=== PATIENT | female | born 1980 | race Caucasian/White ===

== ENCOUNTER 2017-09-09 17:48 | Inpatient (IN) | payer BC ==
[~2017-09-09] VITALS: Ht 162.6 cm; Wt 96.1 kg
[2017-09-09 17:59] VITALS: BP 117/66
[2017-09-09] MEDS ORDERED: PRENATAL TABLE1 EAC3 PO (18:19)
[2017-09-09] MEDS ORDERED: OMEPRAZOLE40 M1 PO (18:19)
[2017-09-09 19:08] VITALS: BP 118/70
[2017-09-09 21:21] LABS: BASOPHIL (%) 0.2 % (0-1); EOSINOPHIL (%) 0.7 % (0-5); EOSINOPHIL COUNT 0.1 K/uL (0-0.3); HEMATOCRIT 34.7 % (36.0-46.0); HEMOGLOBIN 11.3 G/DL (11.9-15.5); IMMATURE GRANULOCYTE (%) 0.6 % (0.0-0.7); LYMPHOCYTE (%) 25.7 % (15-42); LYMPHOCYTE COUNT 2.7 K/uL (1.0-2.8); MCH 27.3 PG (29.0-34.0); MCHC 32.6 G/DL (30.0-36.0); MCV 83.8 FL (83-99); MONOCYTE (%) 7.3 % (3-12); MONOCYTE COUNT 0.8 K/uL (0-0.8); NEUTROPHIL (%) 65.5 % (45-76); NEUTROPHIL COUNT 6.8 K/uL (1.8-6.4); PLATELET COUNT 246 K/uL (156-360); RBC DIS.WIDTH-CV 13.5 % (11.8-14.6); RBC DIS.WIDTH-SD 41.4 % (39-53); RED BLOOD COUNT 4.14 M/uL (3.80-5.20); WHITE BLOOD COUNT 10.4 K/uL (4.1-10.2)
[2017-09-09 21:54] VITALS: BP 122/77
[2017-09-09 23:06] VITALS: BP 119/74
[2017-09-09 23:29] LABS: AMPHETAMINE NEGATIVE (500 ng/mL); BARBITURATES NEGATIVE (200 ng/mL); BENZODIAZEPINES NEGATIVE (150 ng/mL); BUPRENORPHINE NEGATIVE (10 ng/mL); COCAINE NEGATIVE (150 ng/mL); METHADONE NEGATIVE (200 ng/mL); METHAMPHETAMINE NEGATIVE (500 ng/mL); OPIATES (MORPHINE) NEGATIVE (100 ng/mL); OXYCODONE NEGATIVE (100 ng/mL); PHENCYCLIDINE NEGATIVE (25 ng/mL); PROPOXYPHENE NEGATIVE (300 ng/mL); THC CANNABINOIDS NEGATIVE (50 ng/mL); TRICYCLIC ANTIDEPRESSANTS NEGATIVE (300 ng/mL)
[2017-09-09 23:58] VITALS: BP 128/67
[2017-09-10] VITALS (9 sets, daily range): BP systolic 113–134; BP diastolic 54–79
[2017-09-10] MEDS ORDERED: IBUPROFEN800 MG PO (01:21)
[2017-09-11 07:30] VITALS: BP 109/56
[2017-09-11] MEDS ORDERED: BREAST PUMP MC (10:01)
== END 2017-09-11 14:40 | disposition home or self-care (01) | DRG 775 ==
LOC: LDRP-OP 17:48 → 2WEST 17:56 → LDRP-OP 10-14 05:40
PROVIDERS: Midwife
DX: O34.219 Maternal care for unspecified type scar from previous cesarean delivery (principal); O99.214 Obesity complicating childbirth; Z37.0 Single live birth; E66.9 Obesity, unspecified; O09.523 Supervision of elderly multigravida, third trimester; Z3A.39 39 weeks gestation of pregnancy; O71.4 Obstetric high vaginal laceration alone; Z87.891 Personal history of nicotine dependence
CPT/HCPCS: 85025; G0378